=== PATIENT | male | born 1950 | race Caucasian/White ===

== ENCOUNTER 2019-03-26 21:17 | Emergency (ER) | payer OTHER ==
[~2019-03-26] VITALS: Ht 167.6 cm; Wt 69.9 kg
--- OUTSIDE RECORDS SUMMARY | 2019-03-26 21:21 | XMS REPORT ---
Author Author [facility] Address Unknown Phone Unavailable Care Team Providers Care Search Engine Optimization Specialist Name Role Phone Unavailable Unavailable Payers Payer Name Policy Type Policy Number Effective Date Expiration Date Problems This patient has no known problems. Allergies, Adverse Reactions, Alerts Allergy Name Allergy Type Status Severity Reaction(s) Onset Date Inactive Date Treating Clinician Comments No Known Allergies DA Active U 2012-08-23 00:00:00 Medications This patient has no known medications. Results Test Description Test Time Test Comments Text Results Atomic Results Result Comments BASIC METABOLIC PANEL 2019-03-26 05:06:00 SODIUM (test code=NA) 138 mmol/L 136-145 POTASSIUM (test code=K) 3.7 mmol/L 3.5-5.1 CHLORIDE (test code=CL) 104.0 mmol/L 98-107 CARBON DIOXIDE (test code=CO2) 27.0 mmol/L 21-32 ANION GAP (test code=GAP) 10.7 10-20 GLUCOSE (test code=GLU) 175 mg/dL 74-106 BLOOD UREA NITROGEN (test code=BUN) 21 mg/dL 7-18 GLOMERULAR FILTRATION RATE (test code=GFR) > 60 mL/min >=60 Estimated GFR by using Modified MDRD formula.Chronic kidney disease is defined as either kidney damageor GFR <60 mL/min/1.73 m2 for >3 months. CREATININE (test code=CREAT) 0.90 mg/dL 0.7-1.3 BUN/CREATININE RATIO (test code=BUN/CREA) 23.3 10-20 CALCIUM (test code=CA) 8.9 mg/dL 8.5-10.1 CBC W/AUTO [id number] 05:02:00* Test Item Value Reference Range Comments WHITE BLOOD CELL (test code=WBC) 11.5 K/mm3 4.5-12.5 RED BLOOD CELL (test code=RBC) 4.95 mill/mm3 4.0-5.8 HEMOGLOBIN (test code=HGB) 14.2 gram/dL 13.0-17.5 HEMATOCRIT (test code=HCT) 43.1 % 42.0-52.0 MEAN CELL VOLUME (test code=MCV) 87.1 fL 80-98 MEAN CELL HGB (test code=MCH) 28.7 picogram 27.0-33.0 MEAN CELL HGB CONCETRATION (test code=MCHC) 32.9 gram/dL 33.0-36.0 RED CELL DISTRIBUTION WIDTH (test code=RDW) 14.3 % 11.6-16.2 RED CELL DISTRIBUTION WIDTH SD (test code=RDW-SD) 46.1 fL 37.0-51.0 PLATELET COUNT (test code=PLT) 252 K/mm3 150-450 MEAN PLATELET VOLUME (test code=MPV) 10.0 fL 6.7-11.0 NEUTROPHIL % (test code=NT%) 87.5 % 39.0-69.0 IMMATURE GRANULOCYTE % (test code=IG%) 0.3 % 0.0-5.0 LYMPHOCYTE % (test code=LY%) 7.6 % 25.0-55.0 MONOCYTE % (test code=MO%) 4.1 % 0.0-10.0 EOSINOPHIL % (test code=EO%) 0.2 % 0.0-5.0 BASOPHIL % (test code=BA%) 0.3 % 0.0-1.0 NUCLEATED RBC % (test code=NRBC%) 0.0 % 0-0 NEUTROPHIL # (test code=NT#) 10.08 K/mm3 1.8-7.7 IMMATURE GRANULOCYTE # (test code=IG#) 0.04 x10 3/uL 0-0.03 LYMPHOCYTE # (test code=LY#) 0.88 K/mm3 1.0-5.0 MONOCYTE # (test code=MO#) 0.47 K/mm3 0-0.8 EOSINOPHIL # (test code=EO#) 0.02 K/mm3 0.0-0.5 BASOPHIL # (test code=BA#) 0.03 K/mm3 0.0-0.2 NUCLEATED RBC # (test code=NRBC#) 0.00 K/mm3 0.0-0.1 MANUAL DIFF REQUIRED (test code=MDIFF) NO BASIC METABOLIC [id number] 05:01:00* Test Item Value Reference Range Comments SODIUM (test code=NA) 138 mmol/L 136-145 POTASSIUM (test code=K) 3.7 mmol/L 3.5-5.1 CHLORIDE (test code=CL) 104.0 mmol/L 98-107 CARBON DIOXIDE (test code=CO2) mmol/L 21-32 ANION GAP (test code=GAP) 10-20 GLUCOSE (test code=GLU) mg/dL 74-106 BLOOD UREA NITROGEN (test code=BUN) mg/dL 7-18 GLOMERULAR FILTRATION RATE (test code=GFR) mL/min >=60 CREATININE (test code=CREAT) mg/dL 0.7-1.3 BUN/CREATININE RATIO (test code=BUN/CREA) 10-20 CALCIUM (test code=CA) mg/dL 8.5-10.1 URINALYSIS [id number] 04:59:00* Test Item Value Reference Range Comments UA COLOR (test code=COLU) Light-Yellow YELLOW UA APPEARANCE (test code=APPU) CLEAR CLEAR UA GLUCOSE DIPSTICK (test code=DGLUU) NEGATIVE mg/dL NEGATIVE UA BILIRUBIN DIPSTICK (test code=BILU) NEGATIVE mg/dL NEGATIVE UA KETONE DIPSTICK (test code=KETU) 10 (1+) mg/dL NEGATIVE UA SPECIFIC GRAVITY (test code=SGU) 1.015 1.001-1.035 UA BLOOD DIPSTICK (test code=ANNA MARIE) 0.2 mg/dL (2+) mg/dL NEGATIVE UA PH DIPSTICK (test code=ROSA) 5.5 5.0-8.0 UA PROTEIN DIPSTICK (test code=PROU) NEGATIVE mg/dL NEGATIVE UA UROBILINIOGEN DIPSTICK (test code=URO) Normal mg/dL NEGATIVE UA NITRITE DIPSTICK (test code=MARCIE) NEGATIVE NEGATIVE UA LEUKOCYTE ESTERASE W REFLEX (test code=LEUUR) NEGATIVE Clotilde/uL NEGATIVE UA WBC (test code=WBCU) 0-5 per HPF 0-5 UA RBC (test code=RBCU) 21-50 #/HPF 0-5 UA EPITHELIAL CELLS (test code=EPIU) FEW per HPF FEW UA BACTERIA (test code=BACU) NONE SEEN #/HPF NONE UA MUCUS (test code=MUCU) FEW #/LPF FEW Urine Source? Clean CatchCBC W/AUTO [id number] 04:55:00* Test Item Value Reference Range Comments WHITE BLOOD CELL (test code=WBC) K/mm3 4.5-12.5 RED BLOOD CELL (test code=RBC) mill/mm3 4.0-5.8 HEMOGLOBIN (test code=HGB) 14.2 gram/dL 13.0-17.5 HEMATOCRIT (test code=HCT) 43.1 % 42.0-52.0 MEAN CELL VOLUME (test code=MCV) fL 80-98 MEAN CELL HGB (test code=MCH) picogram 27.0-33.0 MEAN CELL HGB CONCETRATION (test code=MCHC) gram/dL 33.0-36.0 RED CELL DISTRIBUTION WIDTH (test code=RDW) % 11.6-16.2 RED CELL DISTRIBUTION WIDTH SD (test code=RDW-SD) fL 37.0-51.0 PLATELET COUNT (test code=PLT) K/mm3 150-450 MEAN PLATELET VOLUME (test code=MPV) fL 6.7-11.0 NEUTROPHIL % (test code=NT%) % 39.0-69.0 IMMATURE GRANULOCYTE % (test code=IG%) % 0.0-5.0 LYMPHOCYTE % (test code=LY%) % 25.0-55.0 MONOCYTE % (test code=MO%) % 0.0-10.0 EOSINOPHIL % (test code=EO%) % 0.0-5.0 BASOPHIL % (test code=BA%) % 0.0-1.0 NEUTROPHIL # (test code=NT#) K/mm3 1.8-7.7 LYMPHOCYTE # (test code=LY#) K/mm3 1.0-5.0 MONOCYTE # (test code=MO#) K/mm3 0-0.8 EOSINOPHIL # (test code=EO#) K/mm3 0.0-0.5 BASOPHIL # (test code=BA#) K/mm3 0.0-0.2
--- NOTE | 2019-03-26 22:27 | NUR ---
PATIENT HAS NOT HAD URINE OUTPUT SINCE YESTURDAY ACCORDING TO PATIENT, DR HUGO GAVE ME ORDER TO PLACE CHADWICK CATH, BLADDER SCAN SHOWED GREATER THAN 200 CC. STERILE TECHNIQUE USED, 10CC BALLOON PUMP INFLATED, PATIENT OUTPUTED 500CC IN URINE BAG, CLEAR BROWN COLOR, CHADWICK FASTENED APPROPIATELY, NO KINKS IN TUBE, CHADWICK BAG BELOW BLADDER.
[2019-03-26] MEDS ORDERED: FLOMAX0.4 MG PO (22:46)
[2019-03-26 23:03] VITALS: BP 109/64
[2019-03-26 23:21] LABS: BILIRUBIN,URINE NEGATIVE (NEGATIVE); CLARITY,URINE CLOUDY (CLEAR); COLOR,URINE YELLOW (YELLOW); KETONES,URINE NEGATIVE (NEGATIVE); LEUKOCYTE ESTERASE ,URINE SMALL (NEGATIVE); NITRITE,URINE NEGATIVE (NEGATIVE); PROTEIN,URINE DIPSTICK 1+ (NEGATIVE); URINE UROBILINOGEN 0.2 mg/dL (0.2 - 1)
[2019-03-26 23:33] LABS: BACTERIA,URINE MANY /HPF; EPITHELIAL CELLS,URINE FEW /LPF; RBC,URINE >50 /HPF (0-5); WBC,URINE (MAN) 21-50 /HPF (0-5)
== END 2019-03-26 23:35 | disposition home or self-care (01) ==
LOC: ER 21:17
DX: N40.1 Benign prostatic hyperplasia with lower urinary tract symptoms (principal); R33.8 Other retention of urine
CPT/HCPCS: 51700; 81001; 87086; 99284

== ENCOUNTER 2019-04-30 12:36 | Observation (INO) | payer MEDICARE ==
[2019-04-23 10:11] LABS: BASOPHILS # (AUTO) 0.1 (0.0-0.1); BASOPHILS % 1.1 % (0.0-1.0); EOSINOPHILS # (AUTO) 0.2 (0.0-0.4); EOSINOPHILS % 2.8 % (0.0-6.0); HEMOGLOBIN 14.1 g/dL (14.0-18.0); LYMPHOCYTES # (AUTO) 1.9 (1.0-3.2); LYMPHOCYTES % 21.8 % (18.0-39.1); MEAN CORPUSCULAR HEMOGLOBIN 29.2 pg (28-32); MEAN CORPUSCULAR HGB CONC 32.8 g/dL (31-35); MONOCYTES # (AUTO) 0.7 (0.2-0.8); MONOCYTES % 8.6 % (4.4-11.3); NEUTROPHILS # (AUTO) 5.5 (2.1-6.9); NEUTROPHILS % 65.1 % (38.7-80.0); PLATELET COUNT 267 x10e3/uL (140-360); RED BLOOD COUNT 4.83 x10e6/uL (4.3-5.7); RED CELL DISTRIBUTION WIDTH 14.4 % (11.7-14.4)
[2019-04-23 10:28] LABS: ALANINE AMINOTRANSFERASE 17 IU/L (0-55); ALBUMIN 3.6 g/dL (3.5-5.0); ALKALINE PHOSPHATASE 63 IU/L (40-150); ANION GAP 11.4 mmol/L (8-16); BLOOD UREA NITROGEN 19 mg/dL (7-26); BUN/CREATININE RATIO 23 (6-25); CALCIUM 9.1 mg/dL (8.4-10.2); CARBON DIOXIDE 25 mmol/L (22-29); CHLORIDE 107 mmol/L (98-107); CREATININE, SERUM 0.81 mg/dL (0.72-1.25); EST GLOMERULAR FILTRATION RATE > 60 ML/MIN (60-); GLUCOSE 94 mg/dL (74-118); POTASSIUM 4.4 mmol/L (3.5-5.1); SODIUM 139 mmol/L (136-145)
--- NOTE | 2019-04-23 10:47 | Diagnostic Imaging Report ---
EXAMINATION: CHEST 2 VIEWS INDICATION: Preoperative. COMPARISON: None. FINDINGS: TUBES and LINES: None. LUNGS: The lungs are moderately inflated. No focal consolidation or pulmonary edema. Opacity in the right lower lung likely represents overlying material and confluence of vessels. PLEURA: No pleural effusion or pneumothorax. HEART AND MEDIASTINUM: The cardiomediastinal silhouette is unremarkable. BONES AND SOFT TISSUES: No acute osseous abnormality. UPPER ABDOMEN: No free air under the diaphragm. IMPRESSION: No acute radiographic abnormality. Signed by: Dr. Lyn Mcqueen MD on 04/23/2019 10:43 AM
[~2019-04-30] VITALS: Ht 167.6 cm; Wt 69.4 kg
[~2019-04-30 12:36] MED LIST: FLOMAX0.4 MG PO
[2019-04-30] MEDS ORDERED: LEVOFLOXACIN 500MG/D5W 100ML 100 ML IV ONE (13:00)
[2019-04-30] MEDS ORDERED: IOPAMIDOL 610MG/1ML 300 MG/ML VIAL IV ONE (13:15)
[2019-04-30] MEDS ORDERED: CIPRO500 MG PO (13:17)
[2019-04-30] MEDS ORDERED: B&O 60MG R/S 60 MG SUPP PR ONE (14:24)
[2019-04-30] MEDS ORDERED: FENTANYL CITRATE/PF 100MCG/2 ML INJ ONE (14:35)
[2019-04-30] MEDS ORDERED: SEVOFLURANE INHAL SOLN 250 ML PEN BTL ONE (14:37)
[2019-04-30] MEDS ORDERED: LIDOCAINE HCL 2% LOCAL INJ 5 ML SDV VIAL INJ ONE (14:37)
[2019-04-30] MEDS ORDERED: DEXAMETHASONE SOD PHOS INJ 4 MG/ML VIAL ONE (14:37)
[2019-04-30] MEDS ORDERED: PROPOFOL IV EMULSION 10 MG/ML 20 ML VIAL ONE (14:37)
[2019-04-30] MEDS ORDERED: ONDANSETRON HCL INJ 2MG/ML 2ML 2 MG/ML VIAL ONE (14:37)
[2019-04-30] MEDS ORDERED: LACTATED RINGER'S 1,000 ML IV ONE (16:30)
[2019-04-30] MEDS ORDERED: B&O 60MG R/S 60 MG SUPP PR PRN (17:00)
[2019-04-30 17:17] VITALS: BP 133/71
[2019-04-30 17:30] VITALS: BP 133/71
[2019-04-30] MEDS: CIPROFLOXACIN 500 MG TAB PO SCH (17:30)
[2019-04-30] MEDS: TRAMADOL HCL 50 MG TAB PO PRN ×2 (18:17→23:06)
--- NOTE | 2019-04-30 19:00 | NUR ---
Report received from Antwon RN. Pt resting comfortably in bed and appears in no distress at this time. Will continue to monitor pt. Call light is in reach of pt.
--- NOTE | 2019-04-30 20:08 | Operative Report ---
DATE OF PROCEDURE: 04/30/2019 SURGEON: Kemar Barkley MD PREOPERATIVE DIAGNOSIS: Urinary retention, bladder stone. POSTOPERATIVE DIAGNOSIS: Urinary retention, bladder stone. OPERATION PERFORMED: Cystoscopy, laser lithotripsy with stone extraction 5 cm stone and transurethral resection of the prostate. ANESTHESIOLOGIST: Staff. ANESTHESIA: General. FINDINGS: The urethra was normal. Prostatic fossa had trilobar hyperplasia, very large bilobar portions of the prostate. The bladder had a 5 cm stone, lot of irritation, neurovascularity was noted around the trigone and the bladder neck. High grade 2-3 trabeculation with cellules and saccules were noted in the bladder. No tumors were seen. PROCEDURE IN DETAIL: With the patient under satisfactory general anesthesia, the patient was placed in the supine position on the operating table. Legs were placed on stirrups. Genitalia was then prepped with Betadine soap and solution and draped in usual manner. A 22-[place] cystourethroscope was then passed into the bladder. Inspection revealed the stone in question. At this point, using a 500 micron laser, multiple shocks were given to the stone until the stone was broken into multiple fragments. These fragments were elliked out and sending for pathological specimen. At this point, the cystoscope was removed from the bladder, replaced with the continuous flow resectoscope with the bipolar electrode and plasma button. First, I used the loop electrode to cut excessive prostatic tissue. After that was done, the Ellik evacuator was used to remove all prostatic chips from the bladder and the button electrode was used to obtain good hemostasis. At this point, after I examined to make sure there was no tissue within the bladder, the instruments were removed. A 22-[place] Casillas catheter was passed per urethra into the bladder and inflated with 30 mL balloon. Irrigation was done until the return was clear. The patient went to the recovery room in satisfactory condition. B and O suppository were placed in the rectum for pain control. DISCHARGE INSTRUCTIONS: The patient was kept overnight for observation. The bladder was irrigated as needed and the patient was checked for any fluctuation in vital signs. The next day, the patient had tolerated diet and his urine was konstantin with no clots. The patient was stable. The patient was sent home to continue his home medication. He was given also Cipro, tramadol for pain, leg bag and overnight bag and he was instructed to return to my office on Sunday morning to remove the Casillas catheter and give him a voiding trial. If there is any change where the patient had to stay an extra night, then a separate dictation will be done to explain the extra stay in the hospital and what was done about it. MD MILI Aviles/MODL /[id number]
[2019-04-30 20:27] VITALS: BP 120/66
[2019-04-30] MEDS ORDERED: TAMSULOSIN HCL 0.4 MG CAP PO SCH (21:00)
[2019-05-01 00:23] VITALS: BP 113/59
[2019-05-01 05:01] VITALS: BP 115/62
[2019-05-01 08:00] VITALS: BP 119/60
[2019-05-01] MEDS: CIPROFLOXACIN 500 MG TAB PO SCH (08:10)
--- NOTE | 2019-05-01 11:17 | NUR ---
Rounds by Dr. Barkley, will discharge patient, f/u appointment on Sunday for removal of Casillas cath, leg bag with teaching will be provided on switching.
[2019-05-01] MEDS: TRAMADOL HCL 50 MG TAB PO PRN (11:20)
[2019-05-01 12:00] VITALS: BP 116/63
--- NOTE | 2019-05-01 13:33 | NUR ---
Patient alert and responsive, educated on switching Casillas bag to leg bag, patient already familiar with usage as used prior to procedure. Provided with discharge summary and prescriptions given to patient. IV line removed, cath tip in place and dressing applied. Patient to see Dr. Barkley at the office for removal of catheter. Switched to leg bag prior to discharge.
[2019-05-01 13:37] VITALS: BP 116/63
== END 2019-05-01 13:22 | disposition home or self-care (01) ==
LOC: OR 12:36 → IMCU 16:19
PROVIDERS: ADMIT Urology; ATTEND Urology
DX: N40.1 Benign prostatic hyperplasia with lower urinary tract symptoms (principal); N21.0 Calculus in bladder; R33.8 Other retention of urine; R35.1 Nocturia; R39.15 Urgency of urination
CPT/HCPCS: 36415; 52318; 52601; 71046; 80053; 85025; 87086; 87186 ×2; 88300; 88305; 93005; G0378 ×2; J1100; J1956; J2001; J2405; J2704; J3010